=== PATIENT | male | born 1980 | race Caucasian/White ===

== ENCOUNTER 2019-10-17 09:50 | Inpatient (IN) | payer OTHER ==
[2019-10-17] MEDS ORDERED: Sodium Chloride 0.9% 1,000 ML IV STA (10:18)
[2019-10-17] MEDS ORDERED: Ondansetron 4 MG/2 ML SDV IVPUSH ONE (10:18)
[2019-10-17] MEDS ORDERED: Sodium Chloride 0.9% 10 ML Syringe FLUSH PRN (10:18)
[2019-10-17] MEDS ORDERED: HYDROmorphone 0.5 MG/0.5 ML Syringe IVPUSH ONE (10:19)
--- NOTE | 2019-10-17 11:16 | EDM.PDOC ---
ED HPI GENERAL MEDICAL PROBLEM - General Chief Complaint: Abdominal Pain Stated Complaint: ABDOMINAL PAIN Time Seen by Provider: 10/17/19 10:04 Source of Information: Reports: Patient, Family, Provider History Limitations: Reports: No Limitations - History of Present Illness INITIAL COMMENTS - FREE TEXT/NARRATIVE: The patient presents with RUQ abdominal pain, nausea and vomiting. This started on Wednesday. He was seen yesterday and labs were done and his ALT, AST and alk phos were elevated. He had an US done this morning that showed cholelithiasis with increased gallbladder wall thickening and a positive sonographic Crawford's sign. Findings concerned for acute cholecystitis. Dr Giraldo sent the patient over. She thinks he may need to go down the road to [place]. She is worried he may have a stone in the duct. He has no fever or chills. He has no chest pain or shortness of breath. He has no dysuria or hematuria. Onset: Gradual Duration: Day(s): Location: Reports: Abdomen Quality: Reports: Sharp Severity: Moderate Improves with: Reports: None Worsens with: Reports: None Associated Symptoms: Reports: Nausea/Vomiting. Denies: Chest Pain, Cough, Fever /Chills, Headaches, Shortness of Breath Right Upper Abdomen Pain Score (Numeric/FACES): 2 - Related Data Allergies Allergy/AdvReac Type Severity Reaction Status Date / Time No Known Allergies Allergy Verified 10/17/19 10:01 Home Meds: Home Meds Omeprazole 20 mg PO DAILY 10/17/19 [History] ED ROS GENERAL - Review of Systems Review Of Systems: See Below Constitutional: Reports: No Symptoms HEENT: Reports: No Symptoms Respiratory: Reports: No Symptoms Cardiovascular: Reports: No Symptoms Endocrine: Reports: No Symptoms GI/Abdominal: Reports: Abdominal Pain, Nausea, Vomiting ED EXAM, GI/ABD - Physical Exam Exam: See Below Exam Limited By: No Limitations General Appearance: Alert, No Apparent Distress Ears: Normal External Exam Nose: Normal Inspection Head: Atraumatic, Normocephalic Respiratory/Chest: No Respiratory Distress, Lungs Clear, Normal Breath Sounds Cardiovascular: Regular Rate, Rhythm, No Edema, No Murmur GI/Abdominal Exam: Soft, No Organomegaly, No Mass, Tender (Moderate tenderness to the RUQ) Course - Vital Signs Last Recorded V/S: Last Vital Signs Temp 97.4 F 10/17/19 09:58 Pulse 101 H 10/17/19 09:58 Resp 19 10/17/19 09:58 BP 168/101 H 10/17/19 09:58 Pulse Ox 100 10/17/19 09:58 - Orders/Labs/Meds Orders: Active Orders 24 hr Category Date Time Status Peripheral IV Care [RC] . DIRECTED Care 10/17/19 10:19 Active Sodium Chloride 0.9% [Saline Flush] Med 10/17/19 10:18 Active 10 ml FLUSH ASDIRECTED PRN ED Antiemetic Medication Reflex [OM.PC] Stat Oth 10/17/19 10:19 Ordered Peripheral IV Insertion Adult [OM.PC] Stat Oth 10/17/19 10:18 Ordered Medication Orders Sodium Chloride (Saline Flush) 10 ml FLUSH ASDIRECTED PRN PRN Reason: Keep Vein Open Last Admin: 10/17/19 10:49 Dose: 10 ml Labs: Laboratory Tests 10/17/19 10/17/19 10/17/19 Range/Units 10:30 10:30 10:50 WBC 6.19 (4.23-9.07) K/mm3 RBC 5.19 (4.63-6.08) M/mm3 Hgb 15.3 (13.7-17.5) gm/dl Hct 46.5 (40.1-51.0) % MCV 89.6 (79.0-92.2) fl MCH 29.5 (25.7-32.2) pg MCHC 32.9 (32.2-35.5) g/dl RDW Std Deviation 42.0 (35.1-43.9) fL Plt Count 301 (163-337) K/mm3 MPV 10.1 (9.4-12.3) fl Neut % (Auto) 60.9 (34.0-67.9) % Lymph % (Auto) 30.5 (21.8-53.1) % [place] % (Auto) 7.3 (5.3-12.2) % Eos % (Auto) 0.6 L (0.8-7.0) Baso % (Auto) 0.5 (0.1-1.2) % Neut # (Auto) 3.77 (1.78-5.38) K/mm3 Lymph # (Auto) 1.89 (1.32-3.57) K/mm3 [place] # (Auto) 0.45 (0.30-0.82) K/mm3 Eos # (Auto) 0.04 (0.04-0.54) K/mm3 Baso # (Auto) 0.03 (0.01-0.08) K/mm3 Sodium 138 (136-145) mEq/L Potassium 3.5 (3.5-5.1) mEq/L Chloride 100 (98-107) mEq/L Carbon Dioxide 26 (21-32) mEq/L Anion Gap 15.5 H (5-15) BUN 16 (7-18) mg/dL Creatinine 1.3 (0.7-1.3) mg/dL Est Cr Clr Drug Dosing 82.86 mL/min Estimated GFR (MDRD) > 60 (>60) mL/min BUN/Creatinine Ratio 12.3 L (14-18) Glucose 139 H (74-106) mg/dL Calcium 9.4 (8.5-10.1) mg/dL Total Bilirubin 1.9 H (0.2-1.0) mg/dL GGT 1440 H (15-85) U/L AST 103 H (15-37) U/L ALT 433 H (16-63) U/L Alkaline Phosphatase 261 H (46-116) U/L Total Protein 8.2 (6.4-8.2) g/dl Albumin 3.6 (3.4-5.0) g/dl Globulin 4.6 gm/dL Albumin/Globulin Ratio 0.8 L (1-2) Lipase 658 H (73-393) U/L Urine Color Yellow (Yellow) Urine Appearance Clear (Clear) Urine pH 5.5 (5.0-8.0) Ur Specific [place] > or = 1.030 (1.005-1.030) Urine Protein Trace H (Negative) Urine Glucose (UA) Negative (Negative) Urine Ketones 2+ H (Negative) Urine Occult Blood Negative (Negative) Urine Nitrite Negative (Negative) Urine Bilirubin 2+ H (Negative) Urine Urobilinogen 0.2 (0.2-1.0) Ur Leukocyte Esterase Negative (Negative) Urine RBC 0-5 (0-5) /hpf Urine WBC 0-5 (0-5) /hpf Ur Squamous Epith Cells 0-5 (0-5) /hpf Urine Bacteria Moderate H (FEW) /hpf Urine Mucus Moderate H (FEW) /hpf Meds: Medications Generic Name Dose Route Start Last Admin Trade Name Freq PRN Reason Stop Dose Admin Sodium Chloride 10 ml 10/17/19 10:18 10/17/19 10:49 Saline Flush FLUSH 10 ml ASDIRECTED PRN Administration Keep Vein Open Discontinued Medications Generic Name Dose Route Start Last Admin Trade Name Freq PRN Reason Stop Dose Admin Hydromorphone HCl 0.5 mg 10/17/19 10:19 10/17/19 10:48 Dilaudid IVPUSH 10/17/19 10:20 0.5 mg ONETIME ONE Administration Sodium Chloride 1,000 mls @ 1,000 mls/hr 10/17/19 10:18 10/17/19 10:49 Normal Saline IV 10/17/19 11:17 1,000 mls/hr .BOLUS STA Administration Ondansetron HCl 4 mg 10/17/19 10:18 10/17/19 10:48 Zofran IVPUSH 10/17/19 10:19 4 mg ONETIME ONE Administration - Re-Assessments/Exams Free Text/Narrative Re-Assessment/Exam: 10/17/19 14:12 I ordered an IV NS 1L bolus, zofran 4mg IV, dilaudid, and labs. 10/17/19 14:13 His CBC was normal. His anion gap was elevated at 15.5. His glucose was 139. His total bili was elevated at 1.9 that is down from 8.9. His GGT is elevated at 1440. His AST is elevated at 103 but improved from yesterday. His ALT is elevated at 433. His alk phos is elevated at 261. His lipase si 658. I called [facility] in [place] and talked with Dr Holly and he recommended a MRCP be done. I ordered that and it shows gallstones. No evidence of biliary duct dilatation. No evidence of choledocholithiasis. I called Dr Giraldo and she will admit the patient. I will write some bridging orders. She will need to let the pancreas cool down before he can go for surgery. Departure - Departure Time of Disposition: 14:20 Disposition: Admitted As Inpatient 68 Clinical Impression: Biliary colic Cholelithiasis Qualifiers: Cholelithiasis location: gallbladder Cholecystitis presence: without cholecystitis Biliary obstruction: without biliary obstruction Qualified Code(s) : K80.20 - Calculus of gallbladder without cholecystitis without obstruction Pancreatitis Qualifiers: Chronicity: acute Pancreatitis type: biliary Acute pancreatitis complication: no infection or necrosis Qualified Code(s): K85.10 - Biliary acute pancreatitis without necrosis or infection - Discharge Information Referrals: Caryl Hubbard MD [Primary Care Provider] - Forms: ED Department Discharge Sepsis Event Note - Evaluation Sepsis Screening Result: No Definite Risk - Focused Exam Vital Signs: Vital Signs Temp Pulse Resp BP Pulse Ox 10/17/19 09:58 97.4 F 101 H 19 168/101 H 100 Date Exam was Performed: 10/17/19 Time Exam was Performed: 14:11 - My Orders Last 24 Hours: My Active Orders 10/17/19 10:18 Sodium Chloride 0.9% [Saline Flush] 10 ml FLUSH ASDIRECTED PRN Peripheral IV Insertion Adult [OM.PC] Stat 10/17/19 10:19 Peripheral IV Care [RC] . DIRECTED ED Antiemetic Medication Reflex [OM.PC] Stat - Assessment/Plan Last 24 Hours: My Active Orders 10/17/19 10:18 Sodium Chloride 0.9% [Saline Flush] 10 ml FLUSH ASDIRECTED PRN Peripheral IV Insertion Adult [OM.PC] Stat 10/17/19 10:19 Peripheral IV Care [RC] . DIRECTED ED Antiemetic Medication Reflex [OM.PC] Stat
--- NOTE | 2019-10-17 13:19 | MR ---
MRI abdomen (without contrast) Technique: Various coronal and axial images were obtained. MRCP also performed. Comparison: No prior abdominal imaging. Findings: Gallstones are seen within the gallbladder. Common bile duct and common hepatic duct measure within normal limits. Pancreatic duct appears within normal limits. No filling defects are seen to indicate choledocholithiasis. No discrete abnormality is appreciated within the liver. Spleen appears normal in size. Kidneys show no cyst or discrete solid abnormality. Pancreas is also felt to be within normal limits. Aorta is patent. Impression: 1. Gallstones. No evidence of biliary duct dilatation. No evidence of choledocholithiasis. Diagnostic code #2 This report was dictated in [place] Standard Time
--- NOTE | 2019-10-17 14:01 | PCM.HP.2 ---
H&P History of Present Illness - General Date of Service: 10/17/19 Source of Information: Patient, Old Records, Provider - History of Present Illness Initial Comments - Free Text/Narative: The patient is a 39 y/o gentleman who presents with a 4 day history of abdominal pain. He reports the pain present in the epigastrium to the RUQ. He had nausea and vomiting with chills the following day and was unable to tolerate food or water. Family notes that the patient became jaundiced. He reports very brown colored urine. He has had a similar episode of abdominal pain a few weeks ago. He was seen at an outside facility and had labs and an ultrasound completed one day ago. His resulting T bili was 8.9 and Lipase was >1200. His US revealed a thickened GB wall with findings of cholecystis. He was seen in the ED here and proceeded to have an MRCP which showed no evidence of a CBD stone. Right Upper Abdomen Pain Score (Numeric/FACES): 2 - Related Data Allergies/Adverse Reactions: Allergies Allergy/AdvReac Type Severity Reaction Status Date / Time No Known Allergies Allergy Verified 10/17/19 10:01 Home Medications: Home Meds Omeprazole 20 mg PO DAILY 10/17/19 [History] Past Medical History Gastrointestinal History: Reports: GERD - Past Surgical History HEENT Surgical History: Reports: Oral Surgery Musculoskeletal Surgical History: Reports: Other (See Below) Other Musculoskeletal Surgeries/Procedures:: Knee sx Social & Family History - Family History Family Medical History: Noncontributory Neurological: Reports: Alzheimers Disease, Parkinson's Endocrine/Metabolic: Reports: Diabetes, type II, Hypothyroidism - Tobacco Use Smoking Status *Q: Never Smoker Second Hand Smoke Exposure: No - Caffeine Use Caffeine Use: Reports: Coffee - Recreational Drug Use Recreational Drug Use: No H&P Review of Systems - Review of Systems: Review Of Systems: See Below General: Reports: Chills HEENT: Reports: No Symptoms Pulmonary: Reports: No Symptoms Cardiovascular: Reports: No Symptoms Gastrointestinal: Reports: Abdominal Pain, Nausea, Vomiting Genitourinary: Reports: No Symptoms Musculoskeletal: Reports: No Symptoms Skin: Reports: Jaundice Exam - Exam Exam: See Below - Vital Signs Vital Signs: Last Vital Signs Temp 36.3 C 10/17/19 09:58 Pulse 101 H 10/17/19 09:58 Resp 19 10/17/19 09:58 BP 168/101 H 10/17/19 09:58 Pulse Ox 100 10/17/19 09:58 Weight: 129.274 kg - Exam Quality Assessment: No: Supplemental Oxygen General: Alert, Oriented HEENT: EOMI, Scleral Icterus Neck: Supple Lungs: Normal Respiratory Effort GI/Abdominal Exam: Soft, Tender (Mild tenderness in epigastrium and RUQ) Extremities: Normal Inspection, No Pedal Edema Peripheral Pulses: 2+: Dorsalis Pedis (L), Dorsalis Pedis (R) Skin: Warm, Dry, Intact Neurological: Cranial Nerves Intact Neuro Extensive - Mental Status: Normal Mood/Affect - Patient Data Lab Results Last 24 hrs: Laboratory Results - last 24 hr 10/17/19 10/17/19 10/17/19 Range/Units 10:30 10:30 10:50 WBC 6.19 (4.23-9.07) K/mm3 RBC 5.19 (4.63-6.08) M/mm3 Hgb 15.3 (13.7-17.5) gm/dl Hct 46.5 (40.1-51.0) % MCV 89.6 (79.0-92.2) fl MCH 29.5 (25.7-32.2) pg MCHC 32.9 (32.2-35.5) g/dl RDW Std Deviation 42.0 (35.1-43.9) fL Plt Count 301 (163-337) K/mm3 MPV 10.1 (9.4-12.3) fl Neut % (Auto) 60.9 (34.0-67.9) % Lymph % (Auto) 30.5 (21.8-53.1) % [place] % (Auto) 7.3 (5.3-12.2) % Eos % (Auto) 0.6 L (0.8-7.0) Baso % (Auto) 0.5 (0.1-1.2) % Neut # (Auto) 3.77 (1.78-5.38) K/mm3 Lymph # (Auto) 1.89 (1.32-3.57) K/mm3 [place] # (Auto) 0.45 (0.30-0.82) K/mm3 Eos # (Auto) 0.04 (0.04-0.54) K/mm3 Baso # (Auto) 0.03 (0.01-0.08) K/mm3 Sodium 138 (136-145) mEq/L Potassium 3.5 (3.5-5.1) mEq/L Chloride 100 (98-107) mEq/L Carbon Dioxide 26 (21-32) mEq/L Anion Gap 15.5 H (5-15) BUN 16 (7-18) mg/dL Creatinine 1.3 (0.7-1.3) mg/dL Est Cr Clr Drug Dosing 82.86 mL/min Estimated GFR (MDRD) > 60 (>60) mL/min BUN/Creatinine Ratio 12.3 L (14-18) Glucose 139 H (74-106) mg/dL Calcium 9.4 (8.5-10.1) mg/dL Total Bilirubin 1.9 H (0.2-1.0) mg/dL GGT 1440 H (15-85) U/L AST 103 H (15-37) U/L ALT 433 H (16-63) U/L Alkaline Phosphatase 261 H (46-116) U/L Total Protein 8.2 (6.4-8.2) g/dl Albumin 3.6 (3.4-5.0) g/dl Globulin 4.6 gm/dL Albumin/Globulin Ratio 0.8 L (1-2) Lipase 658 H (73-393) U/L Urine Color Yellow (Yellow) Urine Appearance Clear (Clear) Urine pH 5.5 (5.0-8.0) Ur Specific [place] > or = 1.030 (1.005-1.030) Urine Protein Trace H (Negative) Urine Glucose (UA) Negative (Negative) Urine Ketones 2+ H (Negative) Urine Occult Blood Negative (Negative) Urine Nitrite Negative (Negative) Urine Bilirubin 2+ H (Negative) Urine Urobilinogen 0.2 (0.2-1.0) Ur Leukocyte Esterase Negative (Negative) Urine RBC 0-5 (0-5) /hpf Urine WBC 0-5 (0-5) /hpf Ur Squamous Epith Cells 0-5 (0-5) /hpf Urine Bacteria Moderate H (FEW) /hpf Urine Mucus Moderate H (FEW) /hpf Result Diagrams: 10/17/19 10:30 10/17/19 10:30 Sepsis Event Note - Evaluation Sepsis Screening Result: No Definite Risk - Focused Exam Vital Signs: Vital Signs Temp Pulse Resp BP Pulse Ox 10/17/19 09:58 36.3 C 101 H 19 168/101 H 100 Date Exam was Performed: 10/17/19 Time Exam was Performed: 18:28 *Q Meaningful Use (ADM) - VTE Risk Assess *Q Each Risk Factor Represents 1 Point: Minor Surgery Planned Total Score 1 Point Risk Factors: 1 - Problem List (1) Biliary colic SNOMED Code(s): 71643952 ICD Code: K80.50 - CALCULUS OF BILE DUCT W/O CHOLANGITIS OR CHOLECYST W/O OBST Status: Acute Current Visit: Yes (2) Cholelithiasis SNOMED Code(s): 223264819 ICD Code: K80.20 - CALCULUS OF GALLBLADDER W/O CHOLECYSTITIS W/O OBSTRUCTION Status: Acute Current Visit: Yes Qualifiers: Cholelithiasis location: gallbladder Cholecystitis presence: without cholecystitis Biliary obstruction: without biliary obstruction Qualified Code(s): K80.20 - Calculus of gallbladder without cholecystitis without obstruction (3) Pancreatitis SNOMED Code(s): 45075773 ICD Code: K85.90 - ACUTE PANCREATITIS WITHOUT NECROSIS OR INFECTION, UNSP Status: Acute Current Visit: Yes Qualifiers: Chronicity: acute Pancreatitis type: biliary Acute pancreatitis complication: no infection or necrosis Qualified Code(s): K85.10 - Biliary acute pancreatitis without necrosis or infection Problem List Initiated/Reviewed/Updated: Yes Orders Last 24hrs: Active Orders 24 hr Category Date Time Status Peripheral IV Care [RC] . DIRECTED Care 10/17/19 10:19 Active Sodium Chloride 0.9% [Saline Flush] Med 10/17/19 10:18 Active 10 ml FLUSH ASDIRECTED PRN ED Antiemetic Medication Reflex [OM.PC] Stat Oth 10/17/19 10:19 Ordered Peripheral IV Insertion Adult [OM.PC] Stat Oth 10/17/19 10:18 Ordered Medication Orders Sodium Chloride (Saline Flush) 10 ml FLUSH ASDIRECTED PRN PRN Reason: Keep Vein Open Last Admin: 10/17/19 10:49 Dose: 10 ml Assessment/Plan Comment:: 39 y/o male with gallstone pancreatitis. Pt has clinical picture consistent with resolving choledocholithiasis - continue NPO with IVF resuscitation. Will give IVF bolus for low UOP - will monitor abdominal exam for resolution of pain - plan for laparoscopic cholecystectomy on this admission when pancreatitis is resolved. - may have nicotine patch for tobacco abuse - am CBC and CMP - continue PRN dilaudid - strict I's and O's Yuko Britton MD General surgery - Mortality Measure Prognosis:: Good
[2019-10-17] MEDS ORDERED: HYDROmorphone 0.5 MG/0.5 ML Syringe IVPUSH PRN (15:07)
[2019-10-17] MEDS ORDERED: Ondansetron 4 MG/2 ML SDV IVPUSH PRN (15:08)
[2019-10-17] MEDS: Lactated Ringers 1,000 ML IV SCH (16:09)
[2019-10-17] MEDS ORDERED: Lactated Ringers 1,000 ML IV ONE (18:38)
[2019-10-17] MEDS: Heparin Sodium 5,000 Units/ML Vial SUBCUT SCH (19:58)
[2019-10-17] MEDS: Nicotine 7 MG/24 Hr Patch TRDERM SCH (20:04)
[2019-10-18] MEDS: Lactated Ringers 1,000 ML IV SCH (00:37)
[2019-10-18] MEDS: Heparin Sodium 5,000 Units/ML Vial SUBCUT SCH ×3 (03:56→18:25)
--- NOTE | 2019-10-18 09:06 | PCM.SURGPN ---
- General Info Date of Service: 10/18/19 Functional Status: Reports: Pain Controlled (improved from yesterday), Ambulating, Urinating, Other (passing flatus) - Patient Data Vitals - Most Recent: Last Vital Signs Temp 37.1 C 10/18/19 07:55 Pulse 72 10/18/19 07:55 Resp 16 10/18/19 07:55 BP 111/57 L 10/18/19 07:55 Pulse Ox 98 10/18/19 07:55 Weight - Most Recent: 127.641 kg I&O - Last 24 Hours: Intake & Output 10/17/19 10/18/19 10/18/19 22:59 06:59 14:59 Intake Total 2310 Output Total 600 Balance 1710 Lab Results Last 24 Hrs: Laboratory Results - last 24 hr 10/17/19 10/17/19 10/17/19 Range/Units 10:30 10:30 10:50 WBC 6.19 (4.23-9.07) K/mm3 RBC 5.19 (4.63-6.08) M/mm3 Hgb 15.3 (13.7-17.5) gm/dl Hct 46.5 (40.1-51.0) % MCV 89.6 (79.0-92.2) fl MCH 29.5 (25.7-32.2) pg MCHC 32.9 (32.2-35.5) g/dl RDW Std Deviation 42.0 (35.1-43.9) fL Plt Count 301 (163-337) K/mm3 MPV 10.1 (9.4-12.3) fl Neut % (Auto) 60.9 (34.0-67.9) % Lymph % (Auto) 30.5 (21.8-53.1) % Snyder % (Auto) 7.3 (5.3-12.2) % Eos % (Auto) 0.6 L (0.8-7.0) Baso % (Auto) 0.5 (0.1-1.2) % Neut # (Auto) 3.77 (1.78-5.38) K/mm3 Lymph # (Auto) 1.89 (1.32-3.57) K/mm3 Snyder # (Auto) 0.45 (0.30-0.82) K/mm3 Eos # (Auto) 0.04 (0.04-0.54) K/mm3 Baso # (Auto) 0.03 (0.01-0.08) K/mm3 Sodium 138 (136-145) mEq/L Potassium 3.5 (3.5-5.1) mEq/L Chloride 100 (98-107) mEq/L Carbon Dioxide 26 (21-32) mEq/L Anion Gap 15.5 H (5-15) BUN 16 (7-18) mg/dL Creatinine 1.3 (0.7-1.3) mg/dL Est Cr Clr Drug Dosing 82.86 mL/min Estimated GFR (MDRD) > 60 (>60) mL/min BUN/Creatinine Ratio 12.3 L (14-18) Glucose 139 H (74-106) mg/dL Calcium 9.4 (8.5-10.1) mg/dL Phosphorus (2.6-4.7) mg/dL Magnesium (1.8-2.4) mg/dl Total Bilirubin 1.9 H (0.2-1.0) mg/dL GGT 1440 H (15-85) U/L AST 103 H (15-37) U/L ALT 433 H (16-63) U/L Alkaline Phosphatase 261 H (46-116) U/L Total Protein 8.2 (6.4-8.2) g/dl Albumin 3.6 (3.4-5.0) g/dl Globulin 4.6 gm/dL Albumin/Globulin Ratio 0.8 L (1-2) Lipase 658 H (73-393) U/L Urine Color Yellow (Yellow) Urine Appearance Clear (Clear) Urine pH 5.5 (5.0-8.0) Ur Specific [place] > or = 1.030 (1.005-1.030) Urine Protein Trace H (Negative) Urine Glucose (UA) Negative (Negative) Urine Ketones 2+ H (Negative) Urine Occult Blood Negative (Negative) Urine Nitrite Negative (Negative) Urine Bilirubin 2+ H (Negative) Urine Urobilinogen 0.2 (0.2-1.0) Ur Leukocyte Esterase Negative (Negative) Urine RBC 0-5 (0-5) /hpf Urine WBC 0-5 (0-5) /hpf Ur Squamous Epith Cells 0-5 (0-5) /hpf Urine Bacteria Moderate H (FEW) /hpf Urine Mucus Moderate H (FEW) /hpf 10/18/19 10/18/19 Range/Units 05:25 05:25 WBC 5.10 (4.23-9.07) K/mm3 RBC 4.67 (4.63-6.08) M/mm3 Hgb 13.8 D (13.7-17.5) gm/dl Hct 41.9 (40.1-51.0) % MCV 89.7 (79.0-92.2) fl MCH 29.6 (25.7-32.2) pg MCHC 32.9 (32.2-35.5) g/dl RDW Std Deviation 41.7 (35.1-43.9) fL Plt Count 268 (163-337) K/mm3 MPV 10.6 (9.4-12.3) fl Neut % (Auto) (34.0-67.9) % Lymph % (Auto) (21.8-53.1) % Snyder % (Auto) (5.3-12.2) % Eos % (Auto) (0.8-7.0) Baso % (Auto) (0.1-1.2) % Neut # (Auto) (1.78-5.38) K/mm3 Lymph # (Auto) (1.32-3.57) K/mm3 Snyder # (Auto) (0.30-0.82) K/mm3 Eos # (Auto) (0.04-0.54) K/mm3 Baso # (Auto) (0.01-0.08) K/mm3 Sodium (136-145) mEq/L Potassium (3.5-5.1) mEq/L Chloride (98-107) mEq/L Carbon Dioxide (21-32) mEq/L Anion Gap (5-15) BUN (7-18) mg/dL Creatinine (0.7-1.3) mg/dL Est Cr Clr Drug Dosing mL/min Estimated GFR (MDRD) (>60) mL/min BUN/Creatinine Ratio (14-18) Glucose (74-106) mg/dL Calcium (8.5-10.1) mg/dL Phosphorus 3.8 (2.6-4.7) mg/dL Magnesium 1.8 (1.8-2.4) mg/dl Total Bilirubin (0.2-1.0) mg/dL GGT (15-85) U/L AST (15-37) U/L ALT (16-63) U/L Alkaline Phosphatase (46-116) U/L Total Protein (6.4-8.2) g/dl Albumin (3.4-5.0) g/dl Globulin gm/dL Albumin/Globulin Ratio (1-2) Lipase (73-393) U/L Urine Color (Yellow) Urine Appearance (Clear) Urine pH (5.0-8.0) Ur Specific [place] (1.005-1.030) Urine Protein (Negative) Urine Glucose (UA) (Negative) Urine Ketones (Negative) Urine Occult Blood (Negative) Urine Nitrite (Negative) Urine Bilirubin (Negative) Urine Urobilinogen (0.2-1.0) Ur Leukocyte Esterase (Negative) Urine RBC (0-5) /hpf Urine WBC (0-5) /hpf Ur Squamous Epith Cells (0-5) /hpf Urine Bacteria (FEW) /hpf Urine Mucus (FEW) /hpf Med Orders - Current: Current Medications Heparin Sodium (Porcine) (Heparin Sodium) 5,000 units SUBCUT Q8H [facility] Last Admin: 10/18/19 03:56 Dose: 5,000 units Hydromorphone HCl (Dilaudid) 0.5 mg IVPUSH Q2H PRN PRN Reason: Pain Last Admin: 10/17/19 16:12 Dose: 0.5 mg Potassium Chloride/Dextrose/Sod Cl (D5 1/2 Ns W/ 20 Meq/L Kcl) 1,000 mls @ 125 mls/hr IV ASDIRECTED [facility] Miscellaneous Information (Remove Patch) 1 ea TRDERM DAILY [facility] Nicotine (Habitrol) 7 mg TRDERM DAILY [facility] Last Admin: 10/17/19 20:04 Dose: 7 mg Ondansetron HCl (Zofran) 4 mg IVPUSH Q6H PRN PRN Reason: Nausea/Vomiting Sodium Chloride (Saline Flush) 10 ml FLUSH ASDIRECTED PRN PRN Reason: Keep Vein Open Last Admin: 10/17/19 10:49 Dose: 10 ml Discontinued Medications Hydromorphone HCl (Dilaudid) 0.5 mg IVPUSH ONETIME ONE Stop: 10/17/19 10:20 Last Admin: 10/17/19 10:48 Dose: 0.5 mg Sodium Chloride (Normal Saline) 1,000 mls @ 1,000 mls/hr IV .BOLUS STA Stop: 10/17/19 11:17 Last Admin: 10/17/19 10:49 Dose: 1,000 mls/hr Lactated Ringer's (Ringers, Lactated) 1,000 mls @ 125 mls/hr IV ASDIRECTED [facility] Last Admin: 10/18/19 00:37 Dose: 125 mls/hr Lactated Ringer's (Ringers, Lactated) 1,000 mls @ 1,000 mls/hr IV ONETIME ONE Stop: 10/17/19 19:37 Last Admin: 10/17/19 19:57 Dose: 1,000 mls/hr Ondansetron HCl (Zofran) 4 mg IVPUSH ONETIME ONE Stop: 10/17/19 10:19 Last Admin: 10/17/19 10:48 Dose: 4 mg - Exam General: Alert, Oriented HEENT: EOMI Lungs: Normal Respiratory Effort GI/Abdominal Exam: Soft, Tender (minimal diffuse tenderness) Sepsis Event Note - Evaluation Sepsis Screening Result: No Definite Risk - Focused Exam Vital Signs: Vital Signs Temp Pulse Resp BP Pulse Ox 10/18/19 07:55 37.1 C 72 16 111/57 L 98 10/18/19 04:02 67 139/92 H 98 10/18/19 03:59 36.8 C 73 20 98 10/17/19 21:35 36.7 C 71 18 143/88 H 98 Date Exam was Performed: 10/18/19 Time Exam was Performed: 09:04 - Problem List & Annotations (1) Biliary colic SNOMED Code(s): 19361136 Code(s): K80.50 - CALCULUS OF BILE DUCT W/O CHOLANGITIS OR CHOLECYST W/O OBST Status: Acute Current Visit: Yes (2) Cholelithiasis SNOMED Code(s): 843024653 Code(s): K80.20 - CALCULUS OF GALLBLADDER W/O CHOLECYSTITIS W/O OBSTRUCTION Status: Acute Current Visit: Yes Qualifiers: Cholelithiasis location: gallbladder Cholecystitis presence: without cholecystitis Biliary obstruction: without biliary obstruction Qualified Code(s): K80.20 - Calculus of gallbladder without cholecystitis without obstruction (3) Pancreatitis SNOMED Code(s): 50737736 Code(s): K85.90 - ACUTE PANCREATITIS WITHOUT NECROSIS OR INFECTION, UNSP Status: Acute Current Visit: Yes Qualifiers: Chronicity: acute Pancreatitis type: biliary Acute pancreatitis complication: no infection or necrosis Qualified Code(s): K85.10 - Biliary acute pancreatitis without necrosis or infection - Problem List Review Problem List Initiated/Reviewed/Updated: Yes - My Orders Last 24 Hours: Active Orders 24 hr Category Date Time Status Patient Status [ADT] Routine ADT 10/17/19 14:28 Active Peripheral IV Care [RC] Q2HR Care 10/17/19 10:19 Active Up ad Skyla [RC] ASDIRECTED Care 10/17/19 22:14 Active NPO [Nothing Per Oral Diet] [DIET] Diet 10/17/19 Lunch Active CBC W/O DIFF,HEMOGRAM [HEME] DAILY Lab 10/19/19 05:10 Ordered CBC W/O DIFF,HEMOGRAM [HEME] DAILY Lab 10/20/19 05:10 Ordered CBC W/O DIFF,HEMOGRAM [HEME] DAILY Lab 10/21/19 05:10 Ordered CBC W/O DIFF,HEMOGRAM [HEME] DAILY Lab 10/22/19 05:10 Ordered CBC W/O DIFF,HEMOGRAM [HEME] DAILY Lab 10/23/19 05:10 Ordered D5 1/2 NS w/ 20 mEq/L KCl 1,000 ml Med 10/18/19 09:15 Ordered IV ASDIRECTED HYDROmorphone [Dilaudid] Med 10/17/19 15:07 Active 0.5 mg IVPUSH Q2H PRN Heparin Sodium Med 10/17/19 19:00 Active 5,000 units SUBCUT Q8H Nicotine [Habitrol] Med 10/17/19 18:45 Active 7 mg TRDERM DAILY Ondansetron [Zofran] Med 10/17/19 15:08 Active 4 mg IVPUSH Q6H PRN Remove Patch Med 10/18/19 09:00 Active 1 ea TRDERM DAILY Sodium Chloride 0.9% [Saline Flush] Med 10/17/19 10:18 Active 10 ml FLUSH ASDIRECTED PRN ED Antiemetic Medication Reflex [OM.PC] Stat Oth 10/17/19 10:19 Ordered Peripheral IV Insertion Adult [OM.PC] Stat Oth 10/17/19 10:18 Ordered Code Status [Resuscitation Status] Routine Resus Stat 10/17/19 15:06 Ordered Medication Orders Heparin Sodium (Porcine) (Heparin Sodium) 5,000 units SUBCUT Q8H [facility] Last Admin: 10/18/19 03:56 Dose: 5,000 units Admin: 10/17/19 19:58 Dose: 5,000 units Hydromorphone HCl (Dilaudid) 0.5 mg IVPUSH Q2H PRN PRN Reason: Pain Last Admin: 10/17/19 16:12 Dose: 0.5 mg Potassium Chloride/Dextrose/Sod Cl (D5 1/2 Ns W/ 20 Meq/L Kcl) 1,000 mls @ 125 mls/hr IV ASDIRECTED [facility] Miscellaneous Information (Remove Patch) 1 ea TRDERM DAILY [facility] Nicotine (Habitrol) 7 mg TRDERM DAILY [facility] Last Admin: 10/17/19 20:04 Dose: 7 mg Ondansetron HCl (Zofran) 4 mg IVPUSH Q6H PRN PRN Reason: Nausea/Vomiting Sodium Chloride (Saline Flush) 10 ml FLUSH ASDIRECTED PRN PRN Reason: Keep Vein Open Last Admin: 10/17/19 10:49 Dose: 10 ml - Assessment Assessment (Free Text/Narrative):: 39 y/o male with gallstone pancreatitis. Pancreatitis is improving - Plan Plan (Free Text/Narrative):: - continue NPO - IVF with D5 1/2NS and 20meq KCl at 125ml/hr - continue current pain regimen - will continue monitoring abdominal exams - will evaluate for surgery this pm or tomorrow if pt continues to improve - Ambulate, SCDs and heparin for DVT prophylaxis Yuko Britton MD General Surgery
[2019-10-18] MEDS: Nicotine 7 MG/24 Hr Patch TRDERM SCH (09:24)
[2019-10-18] MEDS: D5 1/2 NS w/ 20 mEq/L KCl 1,000 ML IV SCH ×2 (09:24→21:07)
[2019-10-18] MEDS: Remove Patch*NICOTINE TRDERM SCH (09:27)
--- NOTE | 2019-10-18 12:49 | PCM.PREANE ---
Preanesthetic Assessment - Anesthesia/Transfusion/Family Hx Anesthesia History: Prior Anesthesia Reaction Type of Anesthesia Reaction: Excessive Nausea/Vomiting Family History of Anesthesia Reaction: No Transfusion History: No Prior Transfusion(s) Intubation History: Unknown - Review of Systems General: No Symptoms, Fatigue Pulmonary: No Symptoms (LUIS A-CPAP/Chewing tobacco/habitrol patch noted/ETOH occasional), Wheezing (at night prior to bed at times and uses inhaler for this. ) Cardiovascular: No Symptoms Gastrointestinal: No Symptoms (gerd), Decreased Appetite Neurological: No Symptoms (Motion sickness) Other: Reports: None (History of Pancreatitis, Biliary Colic, Cholelithiasis), Liver Problems (elevated liver enzymes), Sinus Problem - Physical Assessment NPO Status Date: 10/17/19 NPO Status Time: 08:00 Vital Signs: Last Vital Signs Temp 37.1 C 10/18/19 12:05 Pulse 71 10/18/19 12:05 Resp 12 10/18/19 12:05 BP 131/97 H 10/18/19 12:05 Pulse Ox 94 L 10/18/19 12:05 Height: 1.8 m Weight: 127.641 kg ASA Class: 3 Mental Status: Alert & Oriented x3 Airway Class: Mallampati = 3 Dentition: Reports: Normal Dentition, Caries Thyro-Mental Finger Breadths: 3 Mouth Opening Finger Breadths: 3 ROM/Head Extension: Full Lungs: Clear to Auscultation, Normal Respiratory Effort Cardiovascular: Regular Rate, Regular Rhythm, No Murmurs - Lab Values: Laboratory Last Values WBC 5.10 K/mm3 (4.23-9.07) 10/18/19 05:25 RBC 4.67 M/mm3 (4.63-6.08) 10/18/19 05:25 Hgb 13.8 gm/dl (13.7-17.5) D 10/18/19 05:25 Hct 41.9 % (40.1-51.0) 10/18/19 05:25 MCV 89.7 fl (79.0-92.2) 10/18/19 05:25 MCH 29.6 pg (25.7-32.2) 10/18/19 05:25 MCHC 32.9 g/dl (32.2-35.5) 10/18/19 05:25 RDW Std Deviation 41.7 fL (35.1-43.9) 10/18/19 05:25 Plt Count 268 K/mm3 (163-337) 10/18/19 05:25 MPV 10.6 fl (9.4-12.3) 10/18/19 05:25 Neut % (Auto) 60.9 % (34.0-67.9) 10/17/19 10:30 Lymph % (Auto) 30.5 % (21.8-53.1) 10/17/19 10:30 Hughes % (Auto) 7.3 % (5.3-12.2) 10/17/19 10:30 Eos % (Auto) 0.6 (0.8-7.0) L 10/17/19 10:30 Baso % (Auto) 0.5 % (0.1-1.2) 10/17/19 10:30 Neut # (Auto) 3.77 K/mm3 (1.78-5.38) 10/17/19 10:30 Lymph # (Auto) 1.89 K/mm3 (1.32-3.57) 10/17/19 10:30 [place] # (Auto) 0.45 K/mm3 (0.30-0.82) 10/17/19 10:30 Eos # (Auto) 0.04 K/mm3 (0.04-0.54) 10/17/19 10:30 Baso # (Auto) 0.03 K/mm3 (0.01-0.08) 10/17/19 10:30 Sodium 138 mEq/L (136-145) 10/17/19 10:30 Potassium 3.5 mEq/L (3.5-5.1) 10/17/19 10:30 Chloride 100 mEq/L (98-107) 10/17/19 10:30 Carbon Dioxide 26 mEq/L (21-32) 10/17/19 10:30 Anion Gap 15.5 (5-15) H 10/17/19 10:30 BUN 16 mg/dL (7-18) 10/17/19 10:30 Creatinine 1.3 mg/dL (0.7-1.3) 10/17/19 10:30 Est Cr Clr Drug Dosing 82.86 mL/min 10/17/19 10:30 Estimated GFR (MDRD) > 60 mL/min (>60) 10/17/19 10:30 BUN/Creatinine Ratio 12.3 (14-18) L 10/17/19 10:30 Glucose 139 mg/dL (74-106) H 10/17/19 10:30 Calcium 9.4 mg/dL (8.5-10.1) 10/17/19 10:30 Phosphorus 3.8 mg/dL (2.6-4.7) 10/18/19 05:25 Magnesium 1.8 mg/dl (1.8-2.4) 10/18/19 05:25 Total Bilirubin 1.9 mg/dL (0.2-1.0) H 10/17/19 10:30 GGT 1440 U/L (15-85) H 10/17/19 10:30 AST 103 U/L (15-37) H 10/17/19 10:30 ALT 433 U/L (16-63) H 10/17/19 10:30 Alkaline Phosphatase 261 U/L (46-116) H 10/17/19 10:30 Total Protein 8.2 g/dl (6.4-8.2) 10/17/19 10:30 Albumin 3.6 g/dl (3.4-5.0) 10/17/19 10:30 Globulin 4.6 gm/dL 10/17/19 10:30 Albumin/Globulin Ratio 0.8 (1-2) L 10/17/19 10:30 Lipase 658 U/L (73-393) H 10/17/19 10:30 Urine Color Yellow (Yellow) 10/17/19 10:50 Urine Appearance Clear (Clear) 10/17/19 10:50 Urine pH 5.5 (5.0-8.0) 10/17/19 10:50 Ur Specific [place] > or = 1.030 (1.005-1.030) 10/17/19 10:50 Urine Protein Trace (Negative) H 10/17/19 10:50 Urine Glucose (UA) Negative (Negative) 10/17/19 10:50 Urine Ketones 2+ (Negative) H 10/17/19 10:50 Urine Occult Blood Negative (Negative) 10/17/19 10:50 Urine Nitrite Negative (Negative) 10/17/19 10:50 Urine Bilirubin 2+ (Negative) H 10/17/19 10:50 Urine Urobilinogen 0.2 (0.2-1.0) 10/17/19 10:50 Ur Leukocyte Esterase Negative (Negative) 10/17/19 10:50 Urine RBC 0-5 /hpf (0-5) 10/17/19 10:50 Urine WBC 0-5 /hpf (0-5) 10/17/19 10:50 Ur Squamous Epith Cells 0-5 /hpf (0-5) 10/17/19 10:50 Urine Bacteria Moderate /hpf (FEW) H 10/17/19 10:50 Urine Mucus Moderate /hpf (FEW) H 10/17/19 10:50 All labs reviewed and noted and within acceptable ranges to proceed with procedure. - Allergies Allergies/Adverse Reactions: Allergies Allergy/AdvReac Type Severity Reaction Status Date / Time No Known Allergies Allergy Verified 10/17/19 10:01 - Anesthesia Plan Pre-Op Medication Ordered: None - Acknowledgements Anesthesia Type Planned: General Anesthesia Pt an Appropriate Candidate for the Planned Anesthesia: Yes Alternatives and Risks of Anesthesia Discussed w Pt/Guardian: Yes Pt/Guardian Understands and Agrees with Anesthesia Plan: Yes PreAnesthesia Questionnaire Respiratory History: Reports: Sleep Apnea Gastrointestinal History: Reports: GERD - Infectious Disease History Infectious Disease History: Reports: Chicken Pox - Past Surgical History HEENT Surgical History: Reports: Oral Surgery Musculoskeletal Surgical History: Reports: Other (See Below) Other Musculoskeletal Surgeries/Procedures:: Knee sx - SUBSTANCE USE Smoking Status *Q: Never Smoker Tobacco Use Within Last Twelve Months: Smokeless Tobacco Second Hand Smoke Exposure: No Recreational Drug Use History: No - HOME MEDS Home Medications: Home Meds Omeprazole 20 mg PO DAILY 10/17/19 [History] - CURRENT (IN HOUSE) MEDS Current Meds: Current Medications Heparin Sodium (Porcine) (Heparin Sodium) 5,000 units SUBCUT Q8H [facility] Last Admin: 10/18/19 12:28 Dose: 5,000 units Hydromorphone HCl (Dilaudid) 0.5 mg IVPUSH Q2H PRN PRN Reason: Pain Last Admin: 10/17/19 16:12 Dose: 0.5 mg Potassium Chloride/Dextrose/Sod Cl (D5 1/2 Ns W/ 20 Meq/L Kcl) 1,000 mls @ 125 mls/hr IV ASDIRECTED [facility] Last Admin: 10/18/19 09:24 Dose: 125 mls/hr Miscellaneous Information (Remove Patch) 1 ea TRDERM DAILY [facility] Last Admin: 10/18/19 09:27 Dose: 1 ea Nicotine (Habitrol) 7 mg TRDERM DAILY [facility] Last Admin: 10/18/19 09:24 Dose: 7 mg Ondansetron HCl (Zofran) 4 mg IVPUSH Q6H PRN PRN Reason: Nausea/Vomiting Sodium Chloride (Saline Flush) 10 ml FLUSH ASDIRECTED PRN PRN Reason: Keep Vein Open Last Admin: 10/17/19 10:49 Dose: 10 ml Discontinued Medications Hydromorphone HCl (Dilaudid) 0.5 mg IVPUSH ONETIME ONE Stop: 10/17/19 10:20 Last Admin: 10/17/19 10:48 Dose: 0.5 mg Sodium Chloride (Normal Saline) 1,000 mls @ 1,000 mls/hr IV .BOLUS STA Stop: 10/17/19 11:17 Last Admin: 10/17/19 10:49 Dose: 1,000 mls/hr Lactated Ringer's (Ringers, Lactated) 1,000 mls @ 125 mls/hr IV ASDIRECTED [facility] Last Admin: 10/18/19 00:37 Dose: 125 mls/hr Lactated Ringer's (Ringers, Lactated) 1,000 mls @ 1,000 mls/hr IV ONETIME ONE Stop: 10/17/19 19:37 Last Admin: 10/17/19 19:57 Dose: 1,000 mls/hr Ondansetron HCl (Zofran) 4 mg IVPUSH ONETIME ONE Stop: 10/17/19 10:19 Last Admin: 10/17/19 10:48 Dose: 4 mg
[2019-10-18] MEDS ORDERED: Rocuronium 50 MG/5 ML Vial ONE (13:35)
[2019-10-18] MEDS ORDERED: Succinylcholine/Normal Saline 100 MG/5 ML Syringe ONE (13:36)
[2019-10-18] MEDS ORDERED: fentaNYL 250 MCG/5 ML SDV ONE (13:36)
[2019-10-18] MEDS ORDERED: Midazolam 1 MG/ML 2 ML SDV ONE (13:36)
[2019-10-18] MEDS ORDERED: Propofol 200 MG/20 ML SDV ONE (13:36)
[2019-10-18] MEDS ORDERED: Lidocaine 1% 6 ML ONE (13:37)
[2019-10-18] MEDS ORDERED: cefOXitin 2 GM in Premix Bag 1 BAG IV ONE (13:40)
[2019-10-18] MEDS ORDERED: Scopolamine 1.5 MG Transdermal Patch TRDERM ONE (13:43)
[2019-10-18] MEDS ORDERED: Bupivacaine 0.5%/EPINEPHrine 1:200,000 50 ML MDV ONE (13:44)
[2019-10-18] MEDS ORDERED: Lidocaine 1% with EPINEPHrine 1:100,000 20 ML MDV ONE (13:44)
[2019-10-18] MEDS ORDERED: Lactated Ringers 1,000 ML ONE (14:18)
[2019-10-18] MEDS ORDERED: fentaNYL 100 MCG/2 ML SDV ONE (14:22)
[2019-10-18] MEDS ORDERED: Ondansetron 4 MG/2 ML SDV ONE (14:32)
[2019-10-18] MEDS ORDERED: HYDROmorphone 0.5 MG/0.5 ML Syringe IVPUSH PRN ×2 (14:41→15:59)
[2019-10-18] MEDS ORDERED: fentaNYL 100 MCG/2 ML SDV IVPUSH PRN (14:41)
[2019-10-18] MEDS ORDERED: HYDROmorphone 0.5 MG/0.5 ML Syringe ONE ×2 (15:23→15:31)
--- NOTE | 2019-10-18 15:53 | PCM.OPNOTE ---
- General Post-Op/Procedure Note Date of Surgery/Procedure: 10/18/19 Operative Procedure(s): laparoscopic cholecystectomy Findings: gallstone pancreatitis with resulting acute cholecystitis Pre Op Diagnosis: gallstone pancreatitis Post-Op Diagnosis: same Anesthesia Technique: General ET Tube Primary Surgeon: Yuko Britton Anesthesia Provider: Kobe Prakash Pathology: gallbladder and contents Fluid Replacement, Intraop: 1,700 Output, Urine Amount: 0 EBL in mLs: 15 Complications: none apparent Condition: Good Free Text/Narrative:: Intake & Output 10/18/19 10/18/19 10/18/19 06:59 14:59 22:59 Intake Total 2310 Output Total 600 Balance 1710
--- NOTE | 2019-10-18 15:58 | PCM.PRNOTE ---
- Free Text/Narrative Note: OPERATIVE REPORT Date of Surgery/Procedure: October 18, 2019 Operative Procedure(s): laparoscopic cholecystectomy Findings: Gallstone pancreatitis with resulting acute cholecystitis Pre Op Diagnosis: gallstone pancreatitis Post-Op Diagnosis: Same Anesthesia Technique: General ET Tube Primary Surgeon: Yuko Britton MD Anesthesia Provider: Kobe Prakash CRNA Pathology: Gallbladder with contents Fluid Replacement, Intraop: 1700cc Output, Urine Amount: 0cc EBL: 15cc Drain/Tube Comments: None Indication for the procedure: The patient is a 39-year-old gentleman who presented to the emergency room with findings of gallstone pancreatitis. He was admitted for resolution of the pancreatitis. His pain resolved and he was counseled for laparoscopic cholecystectomy, with possible conversion to open. After discussion of the risks of infection, bleeding and injury to the bile duct as well as increased complication from any residual inflammation, the patient's consent was obtained. Description of the procedure: The patient presented to the outpatient holding area on the day of the procedure. The history and physical were verified and consent was present and on the chart. The patient was taken back to the operating room and placed in supine position on the operating table. SCD boots were placed and functional prior to the start of the procedure. Preoperative antibiotics were administered cefoxitin 2 g IV. A surgical timeout was performed. The patient then had induction of general anesthesia and was intubated without difficulty. The patient was prepped and draped in standard surgical fashion. We began by making an infraumbilical vertical incision and deepened this down through subcutaneous fat to the level of the fascia. This was grasped and incised. We bluntly entered through the peritoneum and a finger sweep was done. A stay suture of 0 Vicryl was placed in the fascia. The 12 mm balloon Coates port was then inserted into the abdomen and the balloon inflated. Insufflation was attached and we had appropriate opening pressures. The abdomen was then insufflated to 15 mmHg. We inserted a scope into the abdomen and inspected the area where we had entered. There was no evidence of injury to surrounding structures with no evidence of bile or bleeding. A TAP block was then performed using 1% lidocaine with epinephrine mixed with 0.5% bupivicaine with epinephrine. The patient was then positioned with head up and right side up to facilitate exposure of the gallbladder. We then proceeded with placing our additional ports. A 5mm port was placed in the epigastric region. Two additional 5mm ports placed under direct visualization in the right upper quadrant. Once we had sufficiently exposed the dome of the gallbladder. This was grasped and retracted cephalad. We proceeded with our dissection to expose the cystic duct and cystic artery. The cystic duct was isolated and clipped. It was thickened and after transection one of the clips on the gallbladder specimen fell off with resulting is [place] of bile and a gallstone. A gallstone was picked up immediately and removed from the abdomen. The cystic artery was then isolated and then clipped and cut using endoscopic scissors. We then proceeded to fully dissect the gallbladder off of the cystic plate using the Bovie device. The gallbladder was in place in the Endo Catch bag and withdrawn towards the umbilical port. We then inspected the area of the dissection. The spilled bile what and any blood was removed using Ray-Karla's which were promptly removed from the abdomen. The Bovie device was then used to provide hemostasis to the cystic plate. The area was then reinspected. There was no significant bleeding and hemostasis was achieved. We then inspected the port sites and desufflated the abdomen. The gallbladder was withdrawn through the umbilical port site. We then proceeded to close the umbilical port site using an 0 Vicryl stitch. We had good closure of the fascia. The ports were then removed. A superficial 4- 0 monocryl suture was used to approximate the skin at all of the sites. The skin was covered with Dermabond surgical glue. The patient tolerated the procedure well and was extubated without difficulty. He was transported to the PACU in stable condition. All sponge, needle counts correct. I was scrubbed and actively participated in the entire procedure. No immediate complications noted. Complications: None apparent Condition: Good Yuko Britton MD General Surgery
[2019-10-18] MEDS ORDERED: Ibuprofen 600 MG Tab PO PRN (15:59)
[2019-10-18] MEDS ORDERED: Acetaminophen/HYDROcodone 325-5 MG Tab PO PRN (15:59)
--- NOTE | 2019-10-18 16:04 | PCM.POSTAN ---
POST ANESTHESIA ASSESSMENT - MENTAL STATUS Mental Status: Alert, Oriented - VITAL SIGNS Vital Signs: Last Vital Signs Temp 98.4 F 10/18/19 15:51 Pulse 71 10/18/19 12:05 Resp 17 10/18/19 16:00 BP 146/79 H 10/18/19 16:00 Pulse Ox 96 10/18/19 16:00 - RESPIRATORY Respiratory Status: Respiratory Rate WNL, Airway Patent, O2 Saturation Stable - CARDIOVASCULAR CV Status: Pulse Rate WNL, Blood Pressure Stable - GASTROINTESTINAL GI Status: No Symptoms - PAIN Pain Score: 0 - POST OP HYDRATION Hydration Status: Adequate & Stable
[2019-10-19] MEDS: Heparin Sodium 5,000 Units/ML Vial SUBCUT SCH ×2 (03:16→11:23)
[2019-10-19] MEDS: D5 1/2 NS w/ 20 mEq/L KCl 1,000 ML IV SCH (04:31)
--- NOTE | 2019-10-19 07:31 | PCM48HPAN ---
Post Anesthesia Note - EVALUATION WITHIN 48HRS OF ANESTHETIC Vital Signs in Normal Range: Yes Patient Participated in Evaluation: Yes Respiratory Function Stable: Yes Airway Patent: Yes Cardiovascular Function Stable: Yes Hydration Status Stable: Yes Pain Control Satisfactory: Yes Nausea and Vomiting Control Satisfactory: Yes Mental Status Recovered: Yes Vital Signs: Last Vital Signs Temp 36.3 C 10/19/19 03:15 Pulse 86 10/19/19 03:15 Resp 17 10/19/19 03:15 BP 142/87 H 10/19/19 03:15 Pulse Ox 97 10/19/19 03:15 - COMMENTS/OBSERVATIONS Free Text/Narrative:: no anesthesia complications noted
[2019-10-19] MEDS: Nicotine 7 MG/24 Hr Patch TRDERM SCH (08:39)
[2019-10-19] MEDS: Remove Patch*NICOTINE TRDERM SCH (08:40)
--- NOTE | 2019-10-19 10:34 | PCM.SURGPN ---
- General Info Date of Service: 10/19/19 POD#: 1 Functional Status: Reports: Pain Controlled, Tolerating Diet, Ambulating, Urinating, Incentive Spirometry - Patient Data Vitals - Most Recent: Last Vital Signs Temp 36.3 C 10/19/19 03:15 Pulse 86 10/19/19 03:15 Resp 17 10/19/19 03:15 BP 142/87 H 10/19/19 03:15 Pulse Ox 97 10/19/19 03:15 Weight - Most Recent: 127.958 kg I&O - Last 24 Hours: Intake & Output 10/18/19 10/19/19 10/19/19 22:59 06:59 14:59 Intake Total 4400 1774 360 Output Total 7571 4055 Balance 2375 -751 360 Lab Results Last 24 Hrs: Laboratory Results - last 24 hr 10/19/19 Range/Units 05:41 WBC 6.58 (4.23-9.07) K/mm3 RBC 4.51 L (4.63-6.08) M/mm3 Hgb 13.2 L (13.7-17.5) gm/dl Hct 40.3 (40.1-51.0) % MCV 89.4 (79.0-92.2) fl MCH 29.3 (25.7-32.2) pg MCHC 32.8 (32.2-35.5) g/dl RDW Std Deviation 41.0 (35.1-43.9) fL Plt Count 280 (163-337) K/mm3 MPV 10.5 (9.4-12.3) fl Med Orders - Current: Current Medications Hydrocodone Bitart/Acetaminophen ([place] 325-5 Mg) 1 tab PO Q4H PRN PRN Reason: Pain (moderate 4-6) Last Admin: 10/18/19 21:08 Dose: 1 tab Heparin Sodium (Porcine) (Heparin Sodium) 5,000 units SUBCUT Q8H RUBIA Last Admin: 10/19/19 03:16 Dose: 5,000 units Hydromorphone HCl (Dilaudid) 0.5 mg IVPUSH Q3H PRN PRN Reason: Breakthrough Pain Potassium Chloride/Dextrose/Sod Cl (D5 1/2 Ns W/ 20 Meq/L Kcl) 1,000 mls @ 125 mls/hr IV ASDIRECTED RUBIA Last Admin: 10/19/19 04:31 Dose: 125 mls/hr Ibuprofen (Motrin) 600 mg PO Q6H PRN PRN Reason: Pain (mild 1-3) Last Admin: 10/18/19 18:24 Dose: 600 mg Miscellaneous Information (Remove Patch) 1 ea TRDERM DAILY [facility] Last Admin: 10/19/19 08:40 Dose: 1 ea Miscellaneous Information (Remove Patch) 0 ea TRDERM ONETIME ONE Stop: 10/21/19 14:01 Nicotine (Habitrol) 7 mg TRDERM DAILY [facility] Last Admin: 10/19/19 08:39 Dose: Not Given Ondansetron HCl (Zofran) 4 mg IVPUSH Q6H PRN PRN Reason: Nausea/Vomiting Sodium Chloride (Saline Flush) 10 ml FLUSH ASDIRECTED PRN PRN Reason: Keep Vein Open Last Admin: 10/17/19 10:49 Dose: 10 ml Discontinued Medications Bupivacaine HCl/Epinephrine Bitart ([place] 0.5%/Epinephrine 1:200,000) Confirm Administered Dose 50 ml .ROUTE .STK-MED ONE Stop: 10/18/19 13:45 Last Admin: 10/18/19 14:49 Dose: 30 ml Fentanyl (Sublimaze) Confirm Administered Dose 250 mcg .ROUTE .STK-MED ONE Stop: 10/18/19 13:37 Fentanyl (Sublimaze) Confirm Administered Dose 100 mcg .ROUTE .STK-MED ONE Stop: 10/18/19 14:23 Fentanyl (Sublimaze) 100 mcg IVPUSH Q5M PRN PRN Reason: Pain Stop: 10/18/19 16:00 Hydromorphone HCl (Dilaudid) 0.5 mg IVPUSH ONETIME ONE Stop: 10/17/19 10:20 Last Admin: 10/17/19 10:48 Dose: 0.5 mg Hydromorphone HCl (Dilaudid) 0.5 mg IVPUSH Q2H PRN PRN Reason: Pain Last Admin: 10/17/19 16:12 Dose: 0.5 mg Hydromorphone HCl (Dilaudid) 0.5 mg IVPUSH Q10M PRN PRN Reason: Pain (severe 7-10) Stop: 10/18/19 16:00 Hydromorphone HCl (Dilaudid) Confirm Administered Dose 0.5 mg .ROUTE .STK-MED ONE Stop: 10/18/19 15:24 Hydromorphone HCl (Dilaudid) Confirm Administered Dose 0.5 mg .ROUTE .STK-MED ONE Stop: 10/18/19 15:32 Sodium Chloride (Normal Saline) 1,000 mls @ 1,000 mls/hr IV .BOLUS STA Stop: 10/17/19 11:17 Last Admin: 10/17/19 10:49 Dose: 1,000 mls/hr Lactated Ringer's (Ringers, Lactated) 1,000 mls @ 125 mls/hr IV ASDIRECTED RUBIA Last Admin: 10/18/19 00:37 Dose: 125 mls/hr Lactated Ringer's (Ringers, Lactated) 1,000 mls @ 1,000 mls/hr IV ONETIME ONE Stop: 10/17/19 19:37 Last Admin: 10/17/19 19:57 Dose: 1,000 mls/hr Cefoxitin Sodium 2 gm/ Premix 50 mls @ 100 mls/hr IV ONETIME ONE Stop: 10/18/19 14:09 Last Admin: 10/18/19 16:36 Dose: Not Given Lidocaine HCl (Xylocaine-Mpf 1%) Confirm Administered Dose 6 mls @ as directed .ROUTE .ST-MED ONE Stop: 10/18/19 13:38 Lactated Ringer's (Ringers, Lactated) Confirm Administered Dose 1,000 mls @ as directed .ROUTE .ST-MED ONE Stop: 10/18/19 14:19 Lidocaine/Epinephrine (Xylocaine 1% With Epinephrine 1:100,000) Confirm Administered Dose 40 ml .ROUTE .ST-MED ONE Stop: 10/18/19 13:45 Last Admin: 10/18/19 14:49 Dose: 30 ml Midazolam HCl (Versed 1 Mg/Ml) Confirm Administered Dose 4 mg .ROUTE .ST-MED ONE Stop: 10/18/19 13:37 Ondansetron HCl (Zofran) 4 mg IVPUSH ONETIME ONE Stop: 10/17/19 10:19 Last Admin: 10/17/19 10:48 Dose: 4 mg Ondansetron HCl (Zofran) Confirm Administered Dose 8 mg .ROUTE .STK-MED ONE Stop: 10/18/19 14:33 Propofol (Diprivan 20 Ml) Confirm Administered Dose 400 mg .ROUTE .STK-MED ONE Stop: 10/18/19 13:37 Rocuronium [place] (Zemuron) Confirm Administered Dose 50 mg .ROUTE .STK-MED ONE Stop: 10/18/19 13:36 Scopolamine (Transderm-Scop) 1.5 mg TRDERM ONETIME ONE Stop: 10/18/19 13:44 Last Admin: 10/18/19 13:55 Dose: 1.5 mg Succinylcholine Chloride (Succinylcholine In Ns Pf) Confirm Administered Dose 200 mg .ROUTE .STK-MED ONE Stop: 10/18/19 13:37 - Exam Wound/Incisions: Healing Well, No Drainage. No: Erythema Quality Assessment: No: Supplemental Oxygen General: Alert, Oriented Lungs: Normal Respiratory Effort GI/Abdominal Exam: Soft, Non-Tender Sepsis Event Note - Evaluation Sepsis Screening Result: No Definite Risk - Focused Exam Vital Signs: Vital Signs Temp Pulse Resp BP Pulse Ox 10/19/19 03:15 36.3 C 86 17 142/87 H 97 Date Exam was Performed: 10/19/19 Time Exam was Performed: 12:05 - Problem List & Annotations (1) Biliary colic SNOMED Code(s): 56991874 Code(s): K80.50 - CALCULUS OF BILE DUCT W/O CHOLANGITIS OR CHOLECYST W/O OBST Status: Acute Current Visit: Yes (2) Cholelithiasis SNOMED Code(s): 078701150 Code(s): K80.20 - CALCULUS OF GALLBLADDER W/O CHOLECYSTITIS W/O OBSTRUCTION Status: Acute Current Visit: Yes Qualifiers: Cholelithiasis location: gallbladder Cholecystitis presence: without cholecystitis Biliary obstruction: without biliary obstruction Qualified Code(s): K80.20 - Calculus of gallbladder without cholecystitis without obstruction (3) Pancreatitis SNOMED Code(s): 32562516 Code(s): K85.90 - ACUTE PANCREATITIS WITHOUT NECROSIS OR INFECTION, UNSP Status: Acute Current Visit: Yes Qualifiers: Chronicity: acute Pancreatitis type: biliary Acute pancreatitis complication: no infection or necrosis Qualified Code(s): K85.10 - Biliary acute pancreatitis without necrosis or infection - Problem List Review Problem List Initiated/Reviewed/Updated: Yes - My Orders Last 24 Hours: Active Orders 24 hr Category Date Time Status Communication Order [RC] ASDIRECTED Care 10/18/19 14:41 Active Communication Order [RC] BID Care 10/18/19 16:02 Active Cooling Warming Measures [RC] ASDIRECTED Care 10/18/19 14:41 Active Oxygen Therapy [RC] ASDIRECTED Care 10/18/19 14:41 Active Pulse Oximetry [RC] ASDIRECTED Care 10/18/19 14:41 Active RT Incentive Spirometry [RC] Q2HWA Care 10/18/19 14:33 Active Ready for Discharge [RC] PER UNIT ROUTINE Care 10/19/19 10:34 Ordered Regular Diet [DIET] Diet 10/19/19 Breakfast Active CBC W/O DIFF,HEMOGRAM [HEME] DAILY Lab 10/20/19 05:10 Ordered CBC W/O DIFF,HEMOGRAM [HEME] DAILY Lab 10/21/19 05:10 Ordered CBC W/O DIFF,HEMOGRAM [HEME] DAILY Lab 10/22/19 05:10 Ordered CBC W/O DIFF,HEMOGRAM [HEME] DAILY Lab 10/23/19 05:10 Ordered Acetaminophen/HYDROcodone [[place] 325-5 MG] Med 10/18/19 15:59 Active 1 tab PO Q4H PRN HYDROmorphone [Dilaudid] Med 10/18/19 15:59 Active 0.5 mg IVPUSH Q3H PRN Ibuprofen [Motrin] Med 10/18/19 15:59 Active 600 mg PO Q6H PRN Remove Patch Med 10/21/19 14:00 Once 0 ea TRDERM ONETIME ONE Schedule Procedure [COMM] Stat Oth 10/18/19 13:32 Ordered Medication Orders Hydrocodone Bitart/Acetaminophen ([place] 325-5 Mg) 1 tab PO Q4H PRN PRN Reason: Pain (moderate 4-6) Last Admin: 10/18/19 21:08 Dose: 1 tab Heparin Sodium (Porcine) (Heparin Sodium) 5,000 units SUBCUT Q8H [facility] Last Admin: 10/19/19 03:16 Dose: 5,000 units Admin: 10/18/19 18:25 Dose: 5,000 units Admin: 10/18/19 12:28 Dose: 5,000 units Admin: 10/18/19 03:56 Dose: 5,000 units Admin: 10/17/19 19:58 Dose: 5,000 units Hydromorphone HCl (Dilaudid) 0.5 mg IVPUSH Q3H PRN PRN Reason: Breakthrough Pain Potassium Chloride/Dextrose/Sod Cl (D5 1/2 Ns W/ 20 Meq/L Kcl) 1,000 mls @ 125 mls/hr IV ASDIRECTED [facility] Last Admin: 10/19/19 04:31 Dose: 125 mls/hr Infusion: 10/19/19 04:31 Dose: 125 mls/hr Admin: 10/18/19 21:07 Dose: 125 mls/hr Infusion: 10/18/19 17:24 Dose: 125 mls/hr Admin: 10/18/19 09:24 Dose: 125 mls/hr Ibuprofen (Motrin) 600 mg PO Q6H PRN PRN Reason: Pain (mild 1-3) Last Admin: 10/18/19 18:24 Dose: 600 mg Miscellaneous Information (Remove Patch) 1 ea TRDERM DAILY [facility] Last Admin: 10/19/19 08:40 Dose: 1 ea Admin: 10/18/19 09:27 Dose: 1 ea Miscellaneous Information (Remove Patch) 0 ea TRDERM ONETIME ONE Stop: 10/21/19 14:01 Nicotine (Habitrol) 7 mg TRDERM DAILY [facility] Last Admin: 10/19/19 08:39 Dose: Not Given Admin: 10/18/19 09:24 Dose: 7 mg Admin: 10/17/19 20:04 Dose: 7 mg Ondansetron HCl (Zofran) 4 mg IVPUSH Q6H PRN PRN Reason: Nausea/Vomiting Sodium Chloride (Saline Flush) 10 ml FLUSH ASDIRECTED PRN PRN Reason: Keep Vein Open Last Admin: 10/17/19 10:49 Dose: 10 ml - Assessment Assessment (Free Text/Narrative):: 39 y/o gentleman with resolved gallstone pancreatitis. Now POD1 s/p laparoscopic cholecystectomy - Plan Plan (Free Text/Narrative):: - Continue regular diet - continue current pain regimen - discussed lifting restrictions of no greater than 20lbs in the first 2 weeks - follow up in 2 weeks for outpatient follow up Discharge home. Work note to be excused from work for 2 weeks was provided. Yuko Britton MD General Surgery
--- NOTE | 2019-10-19 12:12 | PCM.DCSUM1 ---
Discharge Summary - Hospital Course Free Text/Narrative:: The patient is a 39-year-old gentleman who presented to the emergency department with concern of choledocholithiasis with additional gallstone pancreatitis. He had an MRCP which did not indicate any choledocholithiasis and it appears the patient likely had a passed stone. He is admitted to the floor for resolution of his pancreatitis pain. On hospital day 2 he was taken to the operating room for laparoscopic cholecystectomy. Patient had successful resection of his gallbladder. On postop day 1/hospital day 3 he was discharged home Diagnosis: Stroke: No Modified Bhargav Scale: No Signif.Disability Despite Sympt.Able to Carry Out Usual Act./Duties Modified [place] Scale Score: 1 - Discharge Data Discharge Date: 10/19/19 Discharge Disposition: Home, Self-Care 01 Condition: Good - Referral to Home Health Primary Care Physician: Caryl Hubbard MD - Discharge Diagnosis/Problem(s) (1) Biliary colic SNOMED Code(s): 19464449 ICD Code: K80.50 - CALCULUS OF BILE DUCT W/O CHOLANGITIS OR CHOLECYST W/O OBST Status: Acute Current Visit: Yes (2) Cholelithiasis SNOMED Code(s): 663601513 ICD Code: K80.20 - CALCULUS OF GALLBLADDER W/O CHOLECYSTITIS W/O OBSTRUCTION Status: Acute Current Visit: Yes Qualifiers: Cholelithiasis location: gallbladder Cholecystitis presence: without cholecystitis Biliary obstruction: without biliary obstruction Qualified Code(s): K80.20 - Calculus of gallbladder without cholecystitis without obstruction (3) Pancreatitis SNOMED Code(s): 96047324 ICD Code: K85.90 - ACUTE PANCREATITIS WITHOUT NECROSIS OR INFECTION, UNSP Status: Acute Current Visit: Yes Qualifiers: Chronicity: acute Pancreatitis type: biliary Acute pancreatitis complication: no infection or necrosis Qualified Code(s): K85.10 - Biliary acute pancreatitis without necrosis or infection - Patient Summary/Data Operative Procedure(s) Performed: laparoscopic cholecystectomy - Patient Instructions Activity: As Tolerated, No Lifting Over 20 Pounds (for 2 weeks), No Lifting Over 25 Pounds (for 4 weeks), No Strenuous Activities (for 2 weeks) Showering/Bathing: May Shower, No Tub Bathing/Swimming (for 2 weeks) Wound/Incision Care: Keep Operative Site/Wound Site Clean and Dry Notify Provider of: Fever, Increased Pain, Swelling and Redness, Drainage, Nausea and/or Vomiting - Discharge Plan *PRESCRIPTION DRUG MONITORING PROGRAM REVIEWED*: Not Applicable *COPY OF PRESCRIPTION DRUG MONITORING REPORT IN PATIENT MISSY: Not Applicable Prescriptions/Med Rec: Acetaminophen/HYDROcodone [[place] 325-5 MG] 1 tab PO Q4H PRN 14 Days #30 tablet PRN Reason: Pain (Moderate 4-6) Docusate Sodium [Colace] 100 mg PO BID 20 Days #40 cap Ibuprofen [Motrin] 600 mg PO Q6H PRN #120 tablet PRN Reason: Pain (Mild 1-3) Home Medications: Home Meds Omeprazole 20 mg PO DAILY 10/17/19 [History] Acetaminophen/HYDROcodone [[place] 325-5 MG] 1 tab PO Q4H PRN 14 Days #30 tablet 10/19/19 [Rx] Docusate Sodium [Colace] 100 mg PO BID 20 Days #40 cap 10/19/19 [Rx] Ibuprofen [Motrin] 600 mg PO Q6H PRN #120 tablet 10/19/19 [Rx] Patient Handouts: Laparoscopic Cholecystectomy, Acute Pancreatitis, Steps to Quit Smoking Referrals: Yuko Britton MD [Physician] - 10/31/19 1:30 pm (Please follow up with Dr. Britton on Wednesday at 1:30pm.) Caryl Hubbard MD [Primary Care Provider] - 11/09/19 12:45 pm (Please follow up with Dr. Hubbard on at 12:45. ) - Discharge Summary/Plan Comment DC Time >30 min.: No - Patient Data Vitals - Most Recent: Last Vital Signs Temp 36.3 C 10/19/19 03:15 Pulse 86 10/19/19 03:15 Resp 17 10/19/19 03:15 BP 142/87 H 10/19/19 03:15 Pulse Ox 97 10/19/19 03:15 Weight - Most Recent: 127.958 kg I&O - Last 24 hours: Intake & Output 10/18/19 10/19/19 10/19/19 22:59 06:59 14:59 Intake Total 4400 1774 360 Output Total 1 6339 Balance 2375 -751 360 Lab Results - Last 24 hrs: Laboratory Results - last 24 hr 10/19/19 Range/Units 05:41 WBC 6.58 (4.23-9.07) K/mm3 RBC 4.51 L (4.63-6.08) M/mm3 Hgb 13.2 L (13.7-17.5) gm/dl Hct 40.3 (40.1-51.0) % MCV 89.4 (79.0-92.2) fl MCH 29.3 (25.7-32.2) pg MCHC 32.8 (32.2-35.5) g/dl RDW Std Deviation 41.0 (35.1-43.9) fL Plt Count 280 (163-337) K/mm3 MPV 10.5 (9.4-12.3) fl Med Orders - Current: Current Medications Hydrocodone Bitart/Acetaminophen ([place] 325-5 Mg) 1 tab PO Q4H PRN PRN Reason: Pain (moderate 4-6) Last Admin: 10/18/19 21:08 Dose: 1 tab Heparin Sodium (Porcine) (Heparin Sodium) 5,000 units SUBCUT Q8H [facility] Last Admin: 10/19/19 11:23 Dose: 5,000 units Hydromorphone HCl (Dilaudid) 0.5 mg IVPUSH Q3H PRN PRN Reason: Breakthrough Pain Potassium Chloride/Dextrose/Sod Cl (D5 1/2 Ns W/ 20 Meq/L Kcl) 1,000 mls @ 125 mls/hr IV ASDIRECTED [facility] Last Admin: 10/19/19 04:31 Dose: 125 mls/hr Ibuprofen (Motrin) 600 mg PO Q6H PRN PRN Reason: Pain (mild 1-3) Last Admin: 10/18/19 18:24 Dose: 600 mg Miscellaneous Information (Remove Patch) 1 ea TRDERM DAILY [facility] Last Admin: 10/19/19 08:40 Dose: 1 ea Miscellaneous Information (Remove Patch) 0 ea TRDERM ONETIME ONE Stop: 10/21/19 14:01 Nicotine (Habitrol) 7 mg TRDERM DAILY [facility] Last Admin: 10/19/19 08:39 Dose: Not Given Ondansetron HCl (Zofran) 4 mg IVPUSH Q6H PRN PRN Reason: Nausea/Vomiting Sodium Chloride (Saline Flush) 10 ml FLUSH ASDIRECTED PRN PRN Reason: Keep Vein Open Last Admin: 10/17/19 10:49 Dose: 10 ml Discontinued Medications Bupivacaine HCl/Epinephrine Bitart ([place] 0.5%/Epinephrine 1:200,000) Confirm Administered Dose 50 ml .ROUTE .STK-MED ONE Stop: 10/18/19 13:45 Last Admin: 10/18/19 14:49 Dose: 30 ml Fentanyl (Sublimaze) Confirm Administered Dose 250 mcg .ROUTE .STK-MED ONE Stop: 10/18/19 13:37 Fentanyl (Sublimaze) Confirm Administered Dose 100 mcg .ROUTE .STK-MED ONE Stop: 10/18/19 14:23 Fentanyl (Sublimaze) 100 mcg IVPUSH Q5M PRN PRN Reason: Pain Stop: 10/18/19 16:00 Hydromorphone HCl (Dilaudid) 0.5 mg IVPUSH ONETIME ONE Stop: 10/17/19 10:20 Last Admin: 10/17/19 10:48 Dose: 0.5 mg Hydromorphone HCl (Dilaudid) 0.5 mg IVPUSH Q2H PRN PRN Reason: Pain Last Admin: 10/17/19 16:12 Dose: 0.5 mg Hydromorphone HCl (Dilaudid) 0.5 mg IVPUSH Q10M PRN PRN Reason: Pain (severe 7-10) Stop: 10/18/19 16:00 Hydromorphone HCl (Dilaudid) Confirm Administered Dose 0.5 mg .ROUTE .STK-MED ONE Stop: 10/18/19 15:24 Hydromorphone HCl (Dilaudid) Confirm Administered Dose 0.5 mg .ROUTE .STK-MED ONE Stop: 10/18/19 15:32 Sodium Chloride (Normal Saline) 1,000 mls @ 1,000 mls/hr IV .BOLUS STA Stop: 10/17/19 11:17 Last Admin: 10/17/19 10:49 Dose: 1,000 mls/hr Lactated Ringer's (Ringers, Lactated) 1,000 mls @ 125 mls/hr IV ASDIRECTED [facility]UB[facility] Last Admin: 10/18/19 00:37 Dose: 125 mls/hr Lactated Ringer's (Ringers, Lactated) 1,000 mls @ 1,000 mls/hr IV ONETIME ONE Stop: 10/17/19 19:37 Last Admin: 10/17/19 19:57 Dose: 1,000 mls/hr Cefoxitin Sodium 2 gm/ Premix 50 mls @ 100 mls/hr IV ONETIME ONE Stop: 10/18/19 14:09 Last Admin: 10/18/19 16:36 Dose: Not Given Lidocaine HCl (Xylocaine-Mpf 1%) Confirm Administered Dose 6 mls @ as directed .ROUTE .STK-MED ONE Stop: 10/18/19 13:38 Lactated Ringer's (Ringers, Lactated) Confirm Administered Dose 1,000 mls @ as directed .ROUTE .STK-MED ONE Stop: 10/18/19 14:19 Lidocaine/Epinephrine (Xylocaine 1% With Epinephrine 1:100,000) Confirm Administered Dose 40 ml .ROUTE .STK-MED ONE Stop: 10/18/19 13:45 Last Admin: 10/18/19 14:49 Dose: 30 ml Midazolam HCl (Versed 1 Mg/Ml) Confirm Administered Dose 4 mg .ROUTE .STK-MED ONE Stop: 10/18/19 13:37 Ondansetron HCl (Zofran) 4 mg IVPUSH ONETIME ONE Stop: 10/17/19 10:19 Last Admin: 10/17/19 10:48 Dose: 4 mg Ondansetron HCl (Zofran) Confirm Administered Dose 8 mg .ROUTE .STK-MED ONE Stop: 10/18/19 14:33 Propofol (Diprivan 20 Ml) Confirm Administered Dose 400 mg .ROUTE .STK-MED ONE Stop: 10/18/19 13:37 Rocuronium [place] (Zemuron) Confirm Administered Dose 50 mg .ROUTE .STK-MED ONE Stop: 10/18/19 13:36 Scopolamine (Transderm-Scop) 1.5 mg TRDERM ONETIME ONE Stop: 10/18/19 13:44 Last Admin: 10/18/19 13:55 Dose: 1.5 mg Succinylcholine Chloride (Succinylcholine In Ns Pf) Confirm Administered Dose 200 mg .ROUTE .STK-MED ONE Stop: 10/18/19 13:37
== END 2019-10-19 11:48 | disposition home or self-care (01) | DRG 417 ==
LOC: JD.ED 09:50 → JD.MS 14:28
PROVIDERS: ADMIT Surgery; ATTEND Surgery
PROC: 0FT44ZZ Resection of Gallbladder, Percutaneous Endoscopic Approach (ICD-10-PCS; principal; 2019-10-17)
DX: K81.0 Acute cholecystitis (principal); K85.10 Biliary acute pancreatitis without necrosis or infection; K21.9 Gastro-esophageal reflux disease without esophagitis; G47.30 Sleep apnea, unspecified; R73.03 Prediabetes; Z87.891 Personal history of nicotine dependence; Z99.81 Dependence on supplemental oxygen; Z79.899 Other long term (current) drug therapy; Z98.890 Other specified postprocedural states
CPT/HCPCS: 00790; 36415; 74181; 74181-26; 80053; 81001; 82977; 83690; 83735; 84100; 85025; 85027; 96361; 96374; 96375; 99284; 99285-25; A9270-GY; J0330; J1170; J1644; J2001; J2250; J2405; J2704; J3010; J3480; J3490; J7030; J7120

== ENCOUNTER 2025-01-23 08:20 | Day surgery (SDC) | payer BC ==
[~2025-01-23 08:20] MED LIST: Sodium Chloride 0.9% 10 ML Syringe FLUSH PRN
[2025-01-23] MEDS: Lactated Ringers 1,000 ML IV SCH (08:45)
[2025-01-23] MEDS ORDERED: Propofol 200 MG/20 ML SDV ONE ×4 (08:58→09:58)
[2025-01-23] MEDS ORDERED: Sodium Chloride 0.9% 10 ML Syringe FLUSH SCH (09:00)
[2025-01-23] MEDS ORDERED: Lidocaine 1% 4 ML ONE (09:33)
== END 2025-01-23 10:50 | disposition home or self-care (01) ==
LOC: JD.SDS 08:20
PROVIDERS: ATTEND Surgery
DX: D12.0 Benign neoplasm of cecum (principal); D12.8 Benign neoplasm of rectum; K62.5 Hemorrhage of anus and rectum; K60.2 Anal fissure, unspecified; K62.89 Other specified diseases of anus and rectum; K21.9 Gastro-esophageal reflux disease without esophagitis; E66.01 Morbid (severe) obesity due to excess calories; Z68.37 Body mass index [BMI] 37.0-37.9, adult; Z79.899 Other long term (current) drug therapy
CPT/HCPCS: 45385; J2003; J2704; J7120; 00811

== ENCOUNTER 2025-04-19 08:02 | Day surgery (SDC) | payer BC ==
[~2025-04-19 08:02] MED LIST changes: +Propofol 200 MG/20 ML SDV ONE; +Sodium Chloride 0.9% 10 ML Syringe FLUSH SCH; +fentaNYL 250 MCG/5 ML SDV ONE
[2025-04-19] MEDS: Lactated Ringers 1,000 ML IV SCH (08:35)
[2025-04-19] MEDS ORDERED: Ketorolac 30 MG/ML SDV ONE (08:53)
[2025-04-19] MEDS ORDERED: Ondansetron 4 MG/2 ML SDV ONE (08:53)
[2025-04-19] MEDS ORDERED: dexmedeTOMIDine HCl 200 MCG/2 ML SDV ONE (09:27)
[2025-04-19] MEDS: EPINEPHrine 1 MG/ML SDV ONE (10:03)
[2025-04-19] MEDS ORDERED: Ondansetron 4 MG/2 ML SDV IVPUSH PRN (10:36)
[2025-04-19] MEDS ORDERED: fentaNYL 100 MCG/2 ML SDV IVPUSH PRN (10:36)
== END 2025-04-19 11:30 | disposition home or self-care (01) ==
LOC: JD.SDS 08:02
PROVIDERS: ATTEND Surgery
DX: K60.1 Chronic anal fissure (principal); J45.909 Unspecified asthma, uncomplicated; F41.9 Anxiety disorder, unspecified; F32.A Depression, unspecified; K21.9 Gastro-esophageal reflux disease without esophagitis; E66.01 Morbid (severe) obesity due to excess calories; Z68.35 Body mass index [BMI] 35.0-35.9, adult; Z79.899 Other long term (current) drug therapy
CPT/HCPCS: 46080; J0171; J0665; J1885; J2003; J2405; J2704; J3010; J7120; J3490